=== PATIENT | male | born 1980 | race Caucasian/White ===

== ENCOUNTER 2019-01-06 07:47 | Emergency (ER) | payer BC, OTHER ==
[2019-01-06 07:56] VITALS: RESP 18
--- NOTE | 2019-01-06 08:47 | ED ---
General Adult HPI - General Chief complaint: Abdominal Pain Stated complaint: ABDOMINAL BULGE Time Seen by Provider: 01/06/19 08:06 Source: patient, RN notes reviewed Mode of arrival: ambulatory Limitations: no limitations - History of Present Illness Initial comments: 38-year-old male with a history of Crohn's and colitis presents to the emergency department for a chief complaint of bulge in right groin 5 months. Patient states he began noticing this intermittently. He states he sometimes has a sharp stabbing pain. Patient states his finally made him come in to be evaluated. Patient denies any difficulty with bowel movements. Patient denies any significant abdominal pain. Patient denies any testicular pain. Patient has no other complaints at this time including shortness of breath, chest pain, abdominal pain, nausea or vomiting, headache, or visual changes. - Related Data Home Medications Medication Instructions Recorded Confirmed Ibuprofen [Motrin Ib] 800 mg PO Q6H PRN 01/06/19 01/06/19 Allergies Allergy/AdvReac Type Severity Reaction Status Date / Time tramadol Allergy Swelling Verified 01/06/19 08:15 codeine AdvReac Swelling Verified 01/06/19 08:15 Review of Systems ROS Statement: Those systems with pertinent positive or pertinent negative responses have been documented in the HPI. ROS Other: All systems not noted in ROS Statement are negative. Past Medical History Past Medical History: No Reported History Additional Past Medical History / Comment(s): C/O of R knee pain. History of Any Multi-Drug Resistant Organisms: None Reported Past Surgical History: Hernia Repair, Orthopedic Surgery Additional Past Surgical History / Comment(s): Septoplasty Past Anesthesia/Blood Transfusion Reactions: No Reported Reaction Past Psychological History: No Psychological Hx Reported Smoking Status: Current every day smoker Past Alcohol Use History: Rare Past Drug Use History: Marijuana - Past Family History Mother Family Medical History: No Reported History General Exam Limitations: no limitations General appearance: alert, in no apparent distress Head exam: Present: atraumatic, normocephalic, normal inspection Eye exam: Present: normal appearance, PERRL, EOMI. Absent: scleral icterus, conjunctival injection, periorbital swelling ENT exam: Present: normal exam, mucous membranes moist Neck exam: Present: normal inspection, full ROM. Absent: tenderness, meningismus, lymphadenopathy Respiratory exam: Present: normal lung sounds bilaterally. Absent: respiratory distress, wheezes, rales, rhonchi, stridor Cardiovascular Exam: Present: regular rate, normal rhythm, normal heart sounds. Absent: systolic murmur, diastolic murmur, rubs, gallop, clicks GI/Abdominal exam: Present: soft, normal bowel sounds, hernia (patient has small non-erythematous, non-tender buldge to right groin). Absent: distended, tenderness, guarding, rebound, rigid Neurological exam: Present: alert, oriented X3, CN II-XII intact Psychiatric exam: Present: normal affect, normal mood Course Vital Signs 01/06/19 07:54 Temperature 97.8 F Pulse Rate 78 Respiratory 18 Rate Blood Pressure 134/89 O2 Sat by Pulse 99 Oximetry Medical Decision Making - Medical Decision Making 38-year-old male with a history of crohns/colitis presents for a chief complaint of bulge in right groin 5 months. This is non-erythematous. Nontender. CBC CMP unremarkable. Urine does not show any evidence of infection. CT shows a moderate-sized fat containing right inguinal hernia. No evidence of strength in her incarceration at this time. Patient will follow up with surgery. He will return here if he has any worsening pain or other symptoms. - Lab Data Result diagrams: 01/06/19 08:15 01/06/19 08:15 Lab Results 01/06/19 01/06/19 01/06/19 Range/Units 08:15 08:15 08:15 WBC 8.8 (3.8-10.6) k/uL RBC 5.31 (4.30-5.90) m/uL Hgb 16.7 (13.0-17.5) gm/dL Hct 50.8 (39.0-53.0) % MCV 95.6 (80.0-100.0) fL MCH 31.5 (25.0-35.0) pg MCHC 32.9 (31.0-37.0) g/dL RDW 13.0 (11.5-15.5) % Plt Count 242 (150-450) k/uL Neutrophils % 57 % Lymphocytes % 31 % Monocytes % 5 % Eosinophils % 4 % Basophils % 1 % Neutrophils # 5.0 (1.3-7.7) k/uL Lymphocytes # 2.7 (1.0-4.8) k/uL Monocytes # 0.4 (0-1.0) k/uL Eosinophils # 0.4 (0-0.7) k/uL Basophils # 0.1 (0-0.2) k/uL Sodium 142 (137-145) mmol/L Potassium 4.9 (3.5-5.1) mmol/L Chloride 107 (98-107) mmol/L Carbon Dioxide 28 (22-30) mmol/L Anion Gap 7 mmol/L BUN 12 (9-20) mg/dL Creatinine 0.99 (0.66-1.25) mg/dL Est GFR (CKD-EPI)AfAm >90 (>60 ml/min/1.73 sqM) Est GFR (CKD-EPI)NonAf >90 (>60 ml/min/1.73 sqM) Glucose 101 H (74-99) mg/dL Calcium 10.2 (8.4-10.2) mg/dL Total Bilirubin 0.7 (0.2-1.3) mg/dL AST 42 (17-59) U/L ALT 61 (21-72) U/L Alkaline Phosphatase 44 (38-126) U/L Total Protein 7.8 (6.3-8.2) g/dL Albumin 4.8 (3.5-5.0) g/dL Amylase 57 (30-110) U/L Lipase 87 (23-300) U/L Urine Color Yellow Urine Appearance Clear (Clear) Urine pH 5.5 (5.0-8.0) Ur Specific [place] 1.018 (1.001-1.035) Urine Protein Trace H (Negative) Urine Glucose (UA) Negative (Negative) Urine Ketones Negative (Negative) Urine Blood Negative (Negative) Urine Nitrite Negative (Negative) Urine Bilirubin Negative (Negative) Urine Urobilinogen <2.0 (<2.0) mg/dL Ur Leukocyte Esterase Negative (Negative) Disposition Clinical Impression: Right inguinal hernia Disposition: HOME SELF-CARE Condition: Good Additional Instructions: Please follow up with Gen. surgery in 1-2 days. If you have worsening pain or any other worsening symptoms or return here to the emergency department. Is patient prescribed a controlled substance at d/c from ED?: No Referrals: Matteo Magallon MD [Primary Care Provider] - 1-2 days Eugenie Lovell DO [Doctor of Osteopathic Medicine] - 1-2 days Time of Disposition: 09:44
[2019-01-06] MEDS: SODIUM CHLORIDE 0.9% 1,000 ML IV STA (08:50)
[2019-01-06] MEDS: KETOROLAC 30 MG/ML 1 ML VIAL IVP STA (08:59)
[2019-01-06 09:11] LABS: Basophils # (A) 0.1 k/uL (0-0.2); Basophils % (A) 1 %; Eosinophils # (A) 0.4 k/uL (0-0.7); Eosinophils % (A) 4 %; HCT 50.8 % (39.0-53.0); HGB 16.7 gm/dL (13.0-17.5); Lymphocytes # (A) 2.7 k/uL (1.0-4.8); Lymphocytes % (A) 31 %; MCH 31.5 pg (25.0-35.0); MCHC 32.9 g/dL (31.0-37.0); MCV 95.6 fL (80.0-100.0); Mean Platelet Volume 8.7; Monocytes # (A) 0.4 k/uL (0-1.0); Monocytes % (A) 5 %; Neutrophils % (A) 57 %; Platelet Count 242 k/uL (150-450); RBC 5.31 m/uL (4.30-5.90); WBC 8.8 k/uL (3.8-10.6)
[2019-01-06 09:14] LABS: Appearance,Urine Clear (Clear); Bilirubin,Urine Negative (Negative); Blood,Urine Negative (Negative); Color,Urine Yellow; Glucose,Urine (UA) Negative (Negative); Ketones,Urine Negative (Negative); Leukocyte Esterase,Urine Negative (Negative); Nitrite,Urine Negative (Negative); PH, Urine 5.5 (5.0-8.0); Protein,Urine Trace (Negative); Specific Gravity,Urine 1.018 (1.001-1.035); Urobilinogen,Urine <2.0 mg/dL (<2.0)
[2019-01-06 09:26] LABS: ALT 61 U/L (21-72); AST 42 U/L (17-59); Albumin 4.8 g/dL (3.5-5.0); Alkaline Phosphatase 44 U/L (38-126); Amylase 57 U/L (30-110); Anion Gap 7 mmol/L; Blood Urea Nitrogen 12 mg/dL (9-20); Calcium 10.2 mg/dL (8.4-10.2); Carbon Dioxide 28 mmol/L (22-30); Chloride 107 mmol/L (98-107); Glucose 101 mg/dL (74-99); Lipase 87 U/L (23-300); Potassium 4.9 mmol/L (3.5-5.1); Sodium 142 mmol/L (137-145); Total Bilirubin 0.7 mg/dL (0.2-1.3); Total Protein 7.8 g/dL (6.3-8.2)
--- NOTE | 2019-01-06 09:26 | CT ---
EXAMINATION TYPE: CT abdomen pelvis w con DATE OF EXAM: 01/06/2019 COMPARISON: None HISTORY: Abdominal bulge, right inguinal balls per technologist. CT DLP: 1105.3 mGycm, Automated Exposure Control for Dose Reduction was Utilized. CONTRAST: CT scan of the abdomen and pelvis is performed without oral but with IV Contrast, patient injected wi th 100 mL of Isovue 300. FINDINGS: LUNG BASES: No significant abnormality is appreciated. LIVER/GB: Liver is markedly hypodense relative to spleen consistent with diffuse fatty infiltration. PANCREAS: No significant abnormality is seen. SPLEEN: No significant abnormality is seen. ADRENALS: No significant abnormality is seen. KIDNEYS: No significant abnormality is seen. BOWEL: Evaluation of bowel is suboptimal secondary to lack of enteric contrast. Stomach is poorly dis tended and thus suboptimally evaluated. There is no suspicious small or large bowel dilatation. Korina l-appearing appendix is seen extending inferiorly and medially from the cecum. PROSTATE/SEMINAL VESICLES: No gross abnormality seen. LYMPH NODES: No greater than 1cm abdominal or pelvic lymph nodes are appreciated. There are symmetri c bilateral subcentimeter groin lymph nodes OSSEOUS STRUCTURES: No significant abnormality is seen. OTHER: There is moderate sized fat-containing right inguinal hernia. IMPRESSION: Moderate sized fat-containing right inguinal hernia.
[2019-01-06 10:08] VITALS: BP 124/72; PULSE 72; TEMP 98.3
== END 2019-01-06 10:03 | disposition home or self-care (01) ==
LOC: EC 07:47
DX: K40.90 Unilateral inguinal hernia, without obstruction or gangrene, not specified as recurrent (principal); F17.200 Nicotine dependence, unspecified, uncomplicated; Z88.5 Allergy status to narcotic agent
CPT/HCPCS: 36415; 80053; 82150; 83690; 85025; 81003; 74177; 99284; 96374; 96361; J1885; Q9967

== ENCOUNTER 2019-08-25 15:56 | Emergency (ER) | payer OTHER ==
[2019-08-25 16:08] VITALS: TEMP 97.9
[2019-08-25] MEDS ORDERED: KETOROLAC 30 MG/ML 1 ML VIAL IM STA (16:52)
--- NOTE | 2019-08-25 16:59 | XR ---
EXAMINATION TYPE: XR chest 2V DATE OF EXAM: 08/25/2019 COMPARISON: 08/15/2014 HISTORY: Shoulder pain TECHNIQUE: Frontal and lateral views of the chest are obtained. FINDINGS: Heart and mediastinum are normal. Lungs are clear. Diaphragm is normal. Bony thorax appear s normal. IMPRESSION: Normal chest. No change.
--- NOTE | 2019-08-25 17:00 | XR ---
EXAMINATION TYPE: XR shoulder complete LT DATE OF EXAM: 08/25/2019 COMPARISON: None HISTORY: Shoulder pain TECHNIQUE: 3 views FINDINGS: I see no fracture nor dislocation. Joint spaces are normal. There are no pathologic calcifi cations. IMPRESSION: Negative left shoulder exam.
--- NOTE | 2019-08-25 17:17 | ED ---
General Adult HPI - General Chief complaint: Extremity Injury, Upper Stated complaint: Shoulder injury Time Seen by Provider: 08/25/19 16:24 Source: patient, RN notes reviewed Mode of arrival: ambulatory Limitations: no limitations - History of Present Illness Initial comments: 38-year-old male presents for left shoulder and left upper back pain. Patient states he was climbing down from a ladder when he suddenly felt pain when his left arm was above his head. States that it hurts in his shoulder blade to move his left arm. He is able to do so. States that this happened a couple days ago. Denies any other injuries. Denies neck pain.Patient has no other complaints at this time including shortness of breath, chest pain, abdominal pain, nausea or vomiting, headache, or visual changes. - Related Data Home Medications Medication Instructions Recorded Confirmed Ibuprofen [Motrin Ib] 800 mg PO Q6H PRN 01/06/19 01/06/19 Previous Rx's Medication Instructions Recorded Ibuprofen [Motrin] 600 mg PO Q8HR PRN #20 tab 08/25/19 Lidocaine 5% Patch [Lidoderm 5% 1 patch TOPICAL DAILY PRN 5 Days 08/25/19 Patch] #5 patch Allergies Allergy/AdvReac Type Severity Reaction Status Date / Time tramadol Allergy Swelling Verified 08/25/19 16:08 codeine AdvReac Swelling Verified 08/25/19 16:08 Review of Systems ROS Statement: Those systems with pertinent positive or pertinent negative responses have been documented in the HPI. ROS Other: All systems not noted in ROS Statement are negative. Past Medical History Past Medical History: No Reported History Additional Past Medical History / Comment(s): C/O of R knee pain. History of Any Multi-Drug Resistant Organisms: None Reported Past Surgical History: Hernia Repair, Orthopedic Surgery Additional Past Surgical History / Comment(s): Septoplasty Past Anesthesia/Blood Transfusion Reactions: No Reported Reaction Past Psychological History: No Psychological Hx Reported Smoking Status: Current every day smoker Past Alcohol Use History: Rare Past Drug Use History: Marijuana - Past Family History Mother Family Medical History: No Reported History General Exam Limitations: no limitations General appearance: alert, in no apparent distress Head exam: Present: atraumatic, normocephalic, normal inspection Eye exam: Present: normal appearance, PERRL, EOMI. Absent: scleral icterus, conjunctival injection, periorbital swelling ENT exam: Present: normal exam, mucous membranes moist Neck exam: Present: normal inspection, full ROM. Absent: tenderness, meningismus, lymphadenopathy Respiratory exam: Present: normal lung sounds bilaterally. Absent: respiratory distress, wheezes, rales, rhonchi, stridor, chest wall tenderness (No chest wall tenderness) Cardiovascular Exam: Present: regular rate, normal rhythm, normal heart sounds. Absent: systolic murmur, diastolic murmur, rubs, gallop, clicks GI/Abdominal exam: Present: soft, normal bowel sounds. Absent: distended, tenderness, guarding, rebound, rigid Extremities exam: Present: normal capillary refill (Capillary refill less than, radial pulse 2+ and left upper extremity.), other (Sensation intact in the left upper extremity.). Absent: full ROM (Pt has 90 abduction and flexion of the left shoulder. Full range of motion of the left hand wrist and elbow.), tenderness (No tenderness noted of the left shoulder.), joint swelling (No ecchymosis or edema present in the left shoulder or left upper extremity. No ecchymosis in the back.) Back exam: Present: tenderness (Tenderness noted just medial to the left shoulder blade, muscle spasm noted.) Neurological exam: Present: alert Psychiatric exam: Present: normal affect, normal mood Course Vital Signs 08/25/19 16:06 Temperature 97.9 F Pulse Rate 84 Respiratory 20 Rate Blood Pressure 136/77 O2 Sat by Pulse 97 Oximetry Medical Decision Making - Medical Decision Making 38-year-old male presents for left shoulder and upper left back pain after climbing down a ladder. Pain is reproducible to palpation just medial to his left shoulder blade. He has pain in the shoulder when moving the shoulder and has about 90 flexion and abduction. Neurovascular status intact in the left upper cavity. Chest x-ray was obtained which showed normal chest no change. X- ray of the left shoulder is negative. Vitals are stable. Patient was given Toradol and did have some improvement of symptoms. At this time patient will follow up with orthopedics and primary care. He will take Motrin and Tylenol for pain. Recommended range of motion exercises for the left shoulder to prevent frozen shoulder. Recommended he return if he has any worsening symptoms. Disposition Clinical Impression: Shoulder pain, left Disposition: HOME SELF-CARE Condition: Good Instructions (If sedation given, give patient instructions): Shoulder Pain (ED) Additional Instructions: Please take Motrin and Tylenol for pain. Please follow-up with orthopedics and primary care in 1-2 days. Continue to do range of motion exercises with the left shoulder. Return here to the emergency department if you've any worsening symptoms. Prescriptions: Lidocaine 5% Patch [Lidoderm 5% Patch] 1 patch TOPICAL DAILY PRN 5 Days #5 patch PRN Reason: Pain Ibuprofen [Motrin] 600 mg PO Q8HR PRN #20 tab PRN Reason: Pain Is patient prescribed a controlled substance at d/c from ED?: No Referrals: Matteo Magallon MD [Primary Care Provider] - 1-2 days David Harris DO [Doctor of Osteopathic Medicine] - 1-2 days Time of Disposition: 17:16
[2019-08-25 17:22] VITALS: BP 130/74; PULSE 80; RESP 16
== END 2019-08-25 17:21 | disposition home or self-care (01) ==
LOC: EC 15:56
DX: M25.512 Pain in left shoulder (principal); M54.6 Pain in thoracic spine; S49.92XA Unspecified injury of left shoulder and upper arm, initial encounter; F17.200 Nicotine dependence, unspecified, uncomplicated; Z88.6 Allergy status to analgesic agent; Z88.5 Allergy status to narcotic agent; X58.XXXA Exposure to other specified factors, initial encounter; Y93.39 Activity, other involving climbing, rappelling and jumping off
CPT/HCPCS: 99283; 73030; 71046; 96372; J1885

== ENCOUNTER 2020-09-30 16:39 | Emergency (ER) | payer OTHER ==
[2020-09-30 16:54] VITALS: BP 143/81; PULSE 83; RESP 20; TEMP 99.1
--- NOTE | 2020-09-30 17:02 | ED ---
General Adult HPI - General Chief complaint: Recheck/Abnormal Lab/Rx Stated complaint: wanting COVID test Time Seen by Provider: 09/30/20 16:56 Source: patient, RN notes reviewed Mode of arrival: ambulatory Limitations: no limitations - History of Present Illness Initial comments: 39-year-old male presents emergency Department requesting coronavirus testing. Patient states that he had a coworker that tested positive. He states that he was exposed possibly on . He is asymptomatic no fevers chills cough congestion headache dizziness bodyaches abdominal pain no other complaints. - Related Data Home Medications Medication Instructions Recorded Confirmed Ibuprofen [Motrin Ib] 800 mg PO Q6H PRN 01/06/19 01/06/19 Previous Rx's Medication Instructions Recorded Ibuprofen [Motrin] 600 mg PO Q8HR PRN #20 tab 08/25/19 Lidocaine 5% Patch [Lidoderm 5% 1 patch TOPICAL DAILY PRN 5 Days 08/25/19 Patch] #5 patch Allergies Allergy/AdvReac Type Severity Reaction Status Date / Time tramadol Allergy Swelling Verified 09/30/20 16:54 codeine AdvReac Swelling Verified 09/30/20 16:54 Review of Systems ROS Statement: Those systems with pertinent positive or pertinent negative responses have been documented in the HPI. ROS Other: All systems not noted in ROS Statement are negative. Past Medical History Past Medical History: No Reported History Additional Past Medical History / Comment(s): C/O of R knee pain. History of Any Multi-Drug Resistant Organisms: None Reported Past Surgical History: Hernia Repair, Orthopedic Surgery Additional Past Surgical History / Comment(s): Septoplasty Past Anesthesia/Blood Transfusion Reactions: No Reported Reaction Past Psychological History: No Psychological Hx Reported Smoking Status: Current every day smoker Past Alcohol Use History: Rare Past Drug Use History: Marijuana - Past Family History Mother Family Medical History: No Reported History General Exam Limitations: no limitations General appearance: alert, in no apparent distress Neck exam: Present: normal inspection. Absent: tenderness, meningismus, lymphadenopathy Respiratory exam: Present: normal lung sounds bilaterally. Absent: respiratory distress, wheezes, rales, rhonchi, stridor Cardiovascular Exam: Present: regular rate, normal rhythm, normal heart sounds. Absent: systolic murmur, diastolic murmur, rubs, gallop, clicks Course Vital Signs 09/30/20 16:51 Temperature 99.1 F Pulse Rate 83 Respiratory 20 Rate Blood Pressure 143/81 O2 Sat by Pulse 99 Oximetry Medical Decision Making - Medical Decision Making Coronavirus testing was ordered. Patient will follow-up on results. Disposition Clinical Impression: Exposure to COVID-19 virus Disposition: HOME SELF-CARE Condition: Stable Additional Instructions: Please return to the Emergency Department if symptoms worsen or any other concerns. Is patient prescribed a controlled substance at d/c from ED?: No Referrals: Matteo Magallon MD [Primary Care Provider] - 1-2 days Time of Disposition: 17:02
== END 2020-09-30 17:23 | disposition home or self-care (01) ==
LOC: EC 16:39
DX: Z20.828 Contact with and (suspected) exposure to other viral communicable diseases (principal); F17.200 Nicotine dependence, unspecified, uncomplicated; Z88.5 Allergy status to narcotic agent
CPT/HCPCS: 99283; U0003

== ENCOUNTER → 2021-01-21 | Outpatient (CLI) | payer OTHER ==
--- NOTE | 2021-01-21 11:12 | XR ---
EXAMINATION TYPE: XR chest 2V DATE OF EXAM: 01/21/2021 COMPARISON: Chest x-ray August 25, 2019 HISTORY: Chest pain. TECHNIQUE: Frontal and lateral views of the chest are obtained. FINDINGS: There is no focal air space opacity, pleural effusion, or pneumothorax seen. The cardiac silhouette size is stable and within normal limits. The osseous structures are intact. IMPRESSION: No acute process. No significant change from prior.
--- NOTE | 2021-01-21 15:47 | CT ---
EXAMINATION TYPE: CT abdomen pelvis w con DATE OF EXAM: 01/21/2021 COMPARISON: CT 01/06/2019 HISTORY: inguinal hernia CT DLP: 1690.2 mGycm Automated exposure control for dose reduction was used. TECHNIQUE: Helical acquisition of images from the lung bases through the pelvis have been completed. CONTRAST: Performed with Oral Contrast and with IV Contrast, patient injected with 100 mL of Isovue 300. FINDINGS: Right inguinal hernia is confirmed and contains fat which is larger than the smaller left i nguinal hernia containing fat LUNG BASES: No significant abnormality is appreciated. AORTA: No significant abnormality is appreciated. LIVER/GB: Liver shows low attenuation likely due to hepatic steatosis, the liver is enlarged, gallbla dder is unremarkable PANCREAS: No significant abnormality is seen. SPLEEN: No significant abnormality is seen. ADRENALS: No significant abnormality is seen. KIDNEYS: No significant abnormality is seen. REPRODUCTIVE ORGANS: No significant abnormality is seen BOWEL: No significant abnormality is seen. FREE AIR: No Free Air visible. ASCITES: None visible. PELVIC ADENOPATHY: None visualized. RETROPERITONEAL ADENOPATHY: No Retroperitoneal Adenopathy visible. URINARY BLADDER: No significant abnormality is seen. OSSEOUS STRUCTURES: No significant abnormality is seen. IMPRESSION: INGUINAL HERNIAS RIGHT GREATER THAN LEFT
== END | disposition home or self-care (01) ==
LOC: RADCTMAIN 10:32
PROVIDERS: ATTEND Family Medicine
DX: K40.20 Bilateral inguinal hernia, without obstruction or gangrene, not specified as recurrent (principal); R07.89 Other chest pain
CPT/HCPCS: 71046; 74177; Q9967

== ENCOUNTER → 2021-02-07 | Outpatient (CLI) | payer OTHER ==
[2021-02-07 19:25] LABS: Basophils # (A) 0.09 X 10*3/uL (0.00-0.10); Eosinophils % (A) 4.2 %; HCT 44.7 % (39.6-50.0); HGB 14.7 g/dL (13.0-17.0); Lymphocytes # (A) 3.59 X 10*3/uL (0.90-5.00); Lymphocytes % (A) 38.1 %; MCH 31.7 pg (27.0-32.0); MCHC 32.9 g/dL (32.0-37.0); MCV 96.5 fL (80.0-97.0); Monocytes # (A) 0.63 X 10*3/uL (0.20-1.00); Monocytes % (A) 6.7 %; Neutrophils # (A) 4.67 X 10*3/uL (1.80-7.70); Neutrophils % (A) 49.6 %; Platelet Count 263 X 10*3/uL (140-440); RBC 4.63 X 10*6/uL (4.40-5.60); RDW 12.5 % (11.5-14.5); WBC 9.42 X 10*3/uL (4.50-10.00)
== END | disposition home or self-care (01) ==
LOC: LABWHC1 13:55
PROVIDERS: ATTEND Surgery
DX: K40.20 Bilateral inguinal hernia, without obstruction or gangrene, not specified as recurrent (principal)
CPT/HCPCS: 36415; 85025

== ENCOUNTER 2021-02-12 07:38 | Day surgery (SDC) | payer OTHER ==
[2021-02-11 10:38] VITALS: BMI 33.2
[~2021-02-12 07:38] MED LIST: ACETAMINOPHEN TAB 500 MG TAB PO PRN; DEXAMETHASONE SOD PHOSPHATE 4 MG/ML 1 ML VIAL IV PRN; HEPARIN SODIUM,PORCINE 5,000 UNIT/ML 1 ML VIAL SQ PRN; HYDROmorphone 0.5 MG/0.5 ML SYRINGE IVP PRN; KETOROLAC 15 MG/ML 1 ML VIAL IVP SCH; LIDOCAINE 1% (10MG/ML) FOR IV START INTRADERMA PRN; METOCLOPRAMIDE 5 MG/ML 2 ML VIAL IVP PRN; ONDANSETRON 4 MG/2 ML VIAL IVP PRN; SCOPOLAMINE 1.5MG/72HR PATCH TRANSDERM ONE
[2021-02-12] MEDS: LACTATED RINGERS 1,000 ML IV SCH ×2 (07:52→08:15)
[2021-02-12] MEDS ORDERED: MIDAZOLAM 2 MG/2 ML VIAL IVP ONE (08:45)
--- NOTE | 2021-02-12 09:16 | P.GSHP ---
History of Present Illness H&P Date: 02/12/21 Chief Complaint: Bilateral inguinal hernia This a 40-year-old male who presents today for laparoscopic robotic-assisted repair of bilateral hernias. Patient has had complaints of bilateral pain in the groin. He seen Azael found have reducible bilateral hernias. Past Medical History Past Medical History: COPD, Fibromyalgia, Hyperlipidemia Additional Past Medical History / Comment(s): inguinal hernia saritha History of Any Multi-Drug Resistant Organisms: None Reported Past Surgical History: Hernia Repair, Orthopedic Surgery Additional Past Surgical History / Comment(s): Septoplasty, rt knee repair ACL and meniscus Past Anesthesia/Blood Transfusion Reactions: No Reported Reaction Smoking Status: Current every day smoker - Past Family History Mother Family Medical History: Cancer Father Family Medical History: Cancer Additional Family Medical History / Comment(s): lung cancer Medications and Allergies Home Medications Medication Instructions Recorded Confirmed Type Albuterol Inhaler [Ventolin Hfa 1 puff INHALATION DAILY PRN 02/11/21 02/12/21 History Inhaler] Atorvastatin [Lipitor] 20 mg PO DAILY 02/11/21 02/12/21 History Ergocalciferol [Vitamin D2 (1250 1,250 mcg PO SALINAS 02/11/21 02/12/21 History Mcg = [id number] Iu)] Allergies Allergy/AdvReac Type Severity Reaction Status Date / Time tramadol Allergy Swelling Verified 02/12/21 08:03 codeine AdvReac Swelling Verified 02/12/21 08:03 Surgical - Exam Vital Signs Temp Pulse Resp BP Pulse Ox 97.0 F L 83 16 128/65 98 02/12/21 08:27 02/12/21 08:27 02/12/21 08:27 02/12/21 08:27 02/12/21 08:27 - General well developed, well nourished, no distress - Eyes PERRL - ENT normal pinna - Neck no masses - Respiratory normal expansion - Cardiovascular Rhythm: regular - Abdomen Abdomen: soft, non tender Assessment and Plan Assessment: The lateral hernia. We'll perform laparoscopic robotic-assisted repair.
[2021-02-12] MEDS ORDERED: LIDOCAINE 1% INJ 10MG/ML (20 ML MDV) ONE (09:26)
[2021-02-12] MEDS ORDERED: KETAMINE 10 MG/ML 20 ML VIAL ONE (09:26)
[2021-02-12] MEDS ORDERED: SUCCINYLCHOLINE CHLORIDE 100 MG/5 ML SYR IV ONE (09:26)
[2021-02-12] MEDS ORDERED: ROPIVACAINE 5 MG/ML 30 ML VIAL ONE (09:26)
[2021-02-12] MEDS ORDERED: fentaNYL (PF) 50 MCG/ML 2 ML AMP ONE (09:26)
[2021-02-12] MEDS ORDERED: NEOSTIGMINE 1 MG/ML 10 ML VIAL ONE (09:26)
[2021-02-12] MEDS ORDERED: SODIUM CHLORIDE 0.9% (PF) 10 ML VIAL ONE (09:26)
[2021-02-12] MEDS ORDERED: MIDAZOLAM 2 MG/2 ML VIAL ONE (09:26)
[2021-02-12] MEDS ORDERED: ROCURONIUM 10 MG/ML (5 ML VIAL) IV ONE (09:26)
[2021-02-12] MEDS ORDERED: GLYCOPYRROLATE 0.2 MG/ML 2 ML VIAL ONE (09:26)
[2021-02-12] MEDS ORDERED: PROPOFOL 10 MG/ML 20 ML VIAL IV ONE (09:26)
[2021-02-12] MEDS ORDERED: BUPIVACAIN-EPI 0.5%-1:200,000 30 ML VIAL SQ ONE (09:54)
--- NOTE | 2021-02-12 10:42 | P.OP ---
Date of Procedure: 02/12/21 Preoperative Diagnosis: Bilateral inguinal hernia Postoperative Diagnosis: Bilateral inguinal hernia Procedure(s) Performed: Laparoscopic robotic system repair of bilateral renal hernia Anesthesia: BENSON Surgeon: Francis Mariano Estimated Blood Loss (ml): 5 Pathology: none sent Condition: stable Disposition: PACU Description of Procedure: MThe patient's placed on the operating table in the supine position. The patient received general anesthesia. The patient's abdomen was prepped and draped in usual sterile fashion. The skin was anesthetized 1% local Xylocaine at the incision sites. Using an 11 blade a skin incision was made at the umbilicus. The fascia was grasped with a [place] and then the peritoneal cavity was entered with the Veress needle. Position of the Veress needle was confirmed with a positive drop test. After adequate insufflation a 5 mm trocar was placed into the peritoneal cavity. The Laparoscope was placed the peritoneal cavity. And a robotic 8 mm trocar was placed in the right lateral position and then another 8 mm robotic trochars placed in the left lateral position. The original 5 mm trocar was exchanged for a 12 mm trocar. The patient was placed in reverse Trendelenburg and then the patient was docked to the robot. Next the peritoneum over top of the right inguinal hernia was incised and then using blunt and sharp dissection and electrocautery the hernia sac was dissected free from the floor of the inguinal canal. The hernia sac was completely reduced into the peritoneal cavity. And then using the Pro fleet dispatch manager mesh the hernia was repaired. The peritoneum was then sutured with 20V lock suture. Next the peritoneum over top of the left inguinal hernia was incised and then using blunt and sharp dissection and electrocautery the hernia sac was dissected free from the floor of the inguinal canal. The hernia sac was completely reduced into the peritoneal cavity. And then using the Pro fleet dispatch manager mesh the hernia was repaired. The peritoneum was then sutured with 20V lock suture. The patient was then undocked the robot. The needle was withdrawn from the peritoneal cavity. The umbilical trocar site was closed with 0 Ethibond suture. The skin was closed interrupted 3-0 Monocryl suture. Dermabond dressing was applied. Patient was sent to recovery in stable condition.
[2021-02-12 10:56] VITALS: TEMP 97.2
[2021-02-12] MEDS: HYDROmorphone 1 MG/ML 1 ML SYRINGE IVP ONE ×2 (11:10→11:17)
[2021-02-12 12:24] VITALS: RESP 18
[2021-02-12 12:28] VITALS: BP 142/84; PULSE 85
--- NOTE | 2021-02-13 08:43 | P.ANPRN ---
Procedure Note - Anesthesia - Nerve Block Performed Bilateral Erector Spinae Single Time Out Performed: Yes Date of Procedure: 02/12/21 Procedure Start Time: 08:44 Procedure Stop Time: 08:53 Location of Patient: PreOp Indication: Acute Post-Operative Pain, Requested by Surgeon Sedation Type: Sedate with meaningful contact maintained Preparation: Sterile Prep Position: Prone Needle Types: Pajunk Needle Gauge: 21 Ultrasound used to visualize needle placement: Yes Ultrasound used to observe medication spread: Yes Blood Aspirated: No Pain Paresthesia on Injection Noted: No Resistance on Injection: Normal Image Stored and Saved: Yes Events: Uneventful and Well Tolerated (ropi .25% 30 cc bilaterally at t12)
== END 2021-02-12 13:06 | disposition home or self-care (01) ==
LOC: OR 07:38
PROVIDERS: ATTEND Surgery
DX: K40.20 Bilateral inguinal hernia, without obstruction or gangrene, not specified as recurrent (principal); J44.9 Chronic obstructive pulmonary disease, unspecified; M79.7 Fibromyalgia; E78.5 Hyperlipidemia, unspecified; Z98.890 Other specified postprocedural states; F17.200 Nicotine dependence, unspecified, uncomplicated; Z80.1 Family history of malignant neoplasm of trachea, bronchus and lung; Z79.899 Other long term (current) drug therapy; Z88.5 Allergy status to narcotic agent
CPT/HCPCS: 49650; 64999; 76942; C1781 ×2; J2250; J1644; J1100; J2710; J0690; J2405; J2001; J3010; J1170 ×2; J2795; J1885; J0330; J2704

== ENCOUNTER → 2021-02-25 | Outpatient (CLI) | payer OTHER ==
--- NOTE | 2021-02-25 10:47 | ECHOF ---
Referral Reason:R07.89 MEASUREMENTS -------- HEIGHT: 175.3 cm WEIGHT: 102.1 kg BP: RVIDd: 2.6 cm (< 3.3) IVSd: 1.3 cm (0.6 - 1.1) LVIDd: 4.8 cm (3.9 - 5.3) LVPWd: 1.3 cm (0.6 - 1.1) IVSs: 2.1 cm LVIDs: 2.3 cm LVPWs: 1.9 cm LAESV Index (A-L): 15.11 ml/m Ao Diam: 2.9 cm (2.0 - 3.7) AV Cusp: 2.0 cm (1.5 - 2.6) LA Diam: 3.3 cm (2.7 - 3.8) MV EXCURSION: 22.486 mm (> 18.000) MV EF SLOPE: 174 mm/s (70 - 150) EPSS: 0.2 cm MV E Yonis: 0.90 m/s MV DecT: 157 ms MV A Yonis: 0.71 m/s MV E/A Ratio: 1.26 RAP: 5.00 mmHg RVSP: 10.53 mmHg FINDINGS -------- This was a technically good study. The left ventricular size is normal. There is mild concentric left ventricular hypertrophy. Overa ll left ventricular systolic function is normal with, an EF between 55 - 60 %. The diastolic fillin g pattern is normal for the age of the patient 10.72. The right ventricle is normal in size. The left atrial size is normal. Normal LA size by volume 22+/-6 ml/m2. The right atrial size is normal. Interatrial and interventricular septum intact. The aortic valve is trileaflet and appears structurally normal. The mitral valve is normal. There is trace mitral regurgitation. The tricuspid valve appears structurally normal. Trace tricuspid regurgitation present. Right lissette tricular systolic pressure is normal at < 35 mmHg. There is no pulmonic regurgitation present. The aortic root size is normal. Normal inferior vena cava with normal inspiratory collapse consistent with estimated right atrial pre ssure of 5 mmHg. There is no pericardial effusion. CONCLUSIONS -------- 1. The left ventricular size is normal. 2. There is mild concentric left ventricular hypertrophy. 3. Overall left ventricular systolic function is normal with, an EF between 55 - 60 %. 4. The diastolic filling pattern is normal for the age of the patient 10.72 5. There is trace mitral regurgitation. 6. Trace tricuspid regurgitation present. 7. There is no pericardial effusion. RHINESTONE SETTER: Maggie Marinelli RDCS
--- NOTE | 2021-02-25 13:57 | EST ---
EXERCISE STRESS AGE: 40 SEX: Male HT: 5'9" WT: 225 lbs. PROTOCOL: Viraj STAGE: 3 DURATION OF EXERCISE: 9 minutes HEART RATE REST: 85 BLOOD PRESSURE REST: 138/80 MAXIMUM HEART RATE ACHIEVED: 154 MAXIMUM BLOOD PRESSURE: 212/96 85% MPHR: 153 100% MPHR: 180 METS: 10.5 INDICATIONS: Chest pain CLINICAL INFORMATION: Baseline EKG revealed normal sinus rhythm without significant ST changes. Patient walked on standard Viraj protocol for 9 minutes achieved a maximal heart rate of 154 beats per minute which is 85% of predicted maximal. He developed shortness of breath and lightheadedness. He had hypertensive response to exercise with a resting blood pressure 138/80 and peak blood pressure 212/96, and then the pressure blood pressure came back to baseline. EKG did not reveal any ST-segment changes to indicate ischemia. There was no arrhythmia. No angina. By EKG criteria, this is a negative stress test with limited exercise capacity, hypertensive response to exercise and no evidence of ischemia. MMODL / IJN: [id number] /
== END | disposition home or self-care (01) ==
LOC: RADNMMAIN 09:44
PROVIDERS: ATTEND Family Medicine
DX: I08.1 Rheumatic disorders of both mitral and tricuspid valves (principal); R07.89 Other chest pain
CPT/HCPCS: 93017; 93306

== ENCOUNTER → 2021-03-12 | Outpatient (CLI) | payer OTHER ==
--- NOTE | 2021-03-12 14:27 | US ---
EXAMINATION TYPE: US liver DATE OF EXAM: 03/12/2021 COMPARISON: NONE CLINICAL HISTORY: Elevated liver enzymes R74.01. elevated liver enzymes EXAM MEASUREMENTS: Liver Length: 17.2 cm Gallbladder Wall: 0.2 cm CBD: 0.4 cm Right Kidney: 12.2 x 3.7 x 4.6 cm Pancreas: limited evaluation due to overlying bowel content Liver: attenuating, heterogeneous Gallbladder: no evidence of stones Evidence for sonographic Michelel's sign: no CBD: appears wnl Right Kidney: no evidence of hydronephrosis IMPRESSION: 1 hepatomegaly with mild fatty infiltration.
== END | disposition home or self-care (01) ==
LOC: RADUSWWP 07:30
PROVIDERS: ATTEND Family Medicine
DX: K76.0 Fatty (change of) liver, not elsewhere classified (principal); R16.0 Hepatomegaly, not elsewhere classified
CPT/HCPCS: 76705

== ENCOUNTER → 2021-09-03 | Outpatient (CLI) | payer OTHER | END | disposition home or self-care (01) | LOC: LABWHC1 15:45 | PROVIDERS: ATTEND Family Medicine | DX: Z20.822 Contact with and (suspected) exposure to COVID-19 (principal); B34.9 Viral infection, unspecified | CPT/HCPCS: 87502; U0003; C9803; U0005 ==

== ENCOUNTER 2022-03-04 17:09 | Emergency (ER) | payer OTHER ==
[2022-03-04 18:52] VITALS: BP 117/74; PULSE 81; RESP 18; TEMP 98.3
[2022-03-04 19:25] LABS: Basophils # (A) 0.1 k/uL (0-0.2); Basophils % (A) 1 %; Eosinophils # (A) 0.4 k/uL (0-0.7); Eosinophils % (A) 4 %; HCT 47.6 % (39.0-53.0); HGB 16.1 gm/dL (13.0-17.5); Lymphocytes # (A) 3.9 k/uL (1.0-4.8); Lymphocytes % (A) 33 %; MCH 33.2 pg (25.0-35.0); MCHC 33.9 g/dL (31.0-37.0); MCV 97.9 fL (80.0-100.0); Monocytes # (A) 0.5 k/uL (0-1.0); Monocytes % (A) 4 %; Neutrophils # (A) 6.6 k/uL (1.3-7.7); Neutrophils % (A) 57 %; Platelet Count 261 k/uL (150-450); RBC 4.86 m/uL (4.30-5.90); RDW 13.2 % (11.5-15.5); WBC 11.6 k/uL (3.8-10.6)
[2022-03-04 19:42] LABS: ALT 53 U/L (4-49); AST 43 U/L (17-59); African American GFR (CKD) >90 (>60 ml/min/1.73 sqM); Albumin 4.7 g/dL (3.5-5.0); Alkaline Phosphatase 58 U/L (38-126); Anion Gap 11 mmol/L; Blood Urea Nitrogen 10 mg/dL (9-20); Calcium 9.7 mg/dL (8.4-10.2); Carbon Dioxide 22 mmol/L (22-30); Chloride 108 mmol/L (98-107); Glucose 94 mg/dL (74-99); Non-African American GFR(CKD) >90 (>60 ml/min/1.73 sqM); Potassium 4.3 mmol/L (3.5-5.1); Sodium 141 mmol/L (137-145); Total Bilirubin 0.6 mg/dL (0.2-1.3); Total Protein 7.8 g/dL (6.3-8.2)
[2022-03-04 19:51] LABS: Appearance,Urine Clear (Clear); Bilirubin,Urine Negative (Negative); Blood,Urine Negative (Negative); Color,Urine Yellow; Glucose,Urine (UA) Negative (Negative); Ketones,Urine Negative (Negative); Leukocyte Esterase,Urine Negative (Negative); Nitrite,Urine Negative (Negative); Protein,Urine Trace (Negative); Specific Gravity,Urine 1.021 (1.001-1.035); Urobilinogen,Urine <2.0 mg/dL (<2.0)
== END 2022-03-04 21:30 | disposition left against medical advice (07) ==
LOC: EC 17:09
DX: Z53.21 Procedure and treatment not carried out due to patient leaving prior to being seen by health care provider (principal)
CPT/HCPCS: 36415; 80053; 81003; 85025; 99499

== ENCOUNTER → 2022-03-30 | Day surgery (SDC) | payer OTHER ==
[2022-03-27 08:28] VITALS: BMI 32.3
[~2022-03-30] MED LIST changes: -ACETAMINOPHEN TAB 500 MG TAB PO PRN; -DEXAMETHASONE SOD PHOSPHATE 4 MG/ML 1 ML VIAL IV PRN; -HEPARIN SODIUM,PORCINE 5,000 UNIT/ML 1 ML VIAL SQ PRN; -HYDROmorphone 0.5 MG/0.5 ML SYRINGE IVP PRN; -KETOROLAC 15 MG/ML 1 ML VIAL IVP SCH; +LACTATED RINGERS 1,000 ML IV SCH; +LIDOCAINE 2% INJ 20 MG/ML (2 ML VIAL) ONE; -METOCLOPRAMIDE 5 MG/ML 2 ML VIAL IVP PRN; -ONDANSETRON 4 MG/2 ML VIAL IVP PRN; +PROPOFOL 10 MG/ML 20 ML VIAL IV ONE; -SCOPOLAMINE 1.5MG/72HR PATCH TRANSDERM ONE
[2022-03-30 10:13] VITALS: RESP 16; TEMP 97
--- NOTE | 2022-03-30 11:47 | P.GSHP ---
History of Present Illness H&P Date: 03/30/22 Chief Complaint: GERD, GI bleed This a 41-year-old male who presents today for EGD and colonoscopy. Patient has had issues with GERD GI bleed. Past Medical History Past Medical History: No Reported History Additional Past Medical History / Comment(s): States having stomach issues. History of Any Multi-Drug Resistant Organisms: None Reported Past Surgical History: Hernia Repair Additional Past Surgical History / Comment(s): Septoplasty, R knee surgery. Past Anesthesia/Blood Transfusion Reactions: No Reported Reaction Smoking Status: Current every day smoker - Past Family History Mother Family Medical History: Cancer Additional Family Medical History / Comment(s): Breast Father Family Medical History: Cancer Additional Family Medical History / Comment(s): lung cancer Medications and Allergies Home Medications Medication Instructions Recorded Confirmed Type Acetaminophen Tab [Tylenol] 650 mg PO Q6H #30 tab 02/12/21 03/30/22 Rx Ibuprofen [Motrin] 600 mg PO Q6HR PRN #40 tab 02/12/21 03/30/22 Rx Multivitamins, Thera [Multivitamin 1 tab PO DAILY 03/30/22 03/30/22 History (formulary)] Allergies Allergy/AdvReac Type Severity Reaction Status Date / Time tramadol Allergy Swelling Verified 03/30/22 10:13 codeine AdvReac Swelling Verified 03/30/22 10:13 Surgical - Exam Vital Signs Temp Pulse Resp BP Pulse Ox 97.0 F L 86 16 133/83 95 03/30/22 10:12 03/30/22 10:12 03/30/22 10:12 03/30/22 10:12 03/30/22 10:12 - General well developed, well nourished, no distress - Eyes PERRL - ENT normal pinna - Neck no masses - Respiratory normal expansion - Cardiovascular Rhythm: regular - Abdomen Abdomen: soft, non tender Assessment and Plan Assessment: GERD, GI bleed. We'll perform colonoscopy.
--- NOTE | 2022-03-30 12:05 | P.OP ---
Date of Procedure: 03/30/22 Preoperative Diagnosis: GERD GI bleed Postoperative Diagnosis: Antral gastritis Minimal internal and external hemorrhoids Procedure(s) Performed: Colonoscopy Anesthesia: MAC Surgeon: Francis Mariano Pathology: other (Antrum) Condition: stable Disposition: PACU Description of Procedure: The patient's placed on the endoscopy table in the lateral position. He received IV sedation. The gastro-/oropharynx passed in the esophagus and stomach. Scope was placed through the pylorus. The first and second portion of duodenum appeared normal. Scope was then brought back the antrum was mildly inflamed. A biopsies was performed. The scope was retroflexed and the remainder of the stomach appeared normal. The GE junction was at 40 cm. The distal esophagus appeared normal. The proximal esophagus appeared normal. Scope was withdrawn for patient. Next digital rectal exam was performed. This revealed a few minimal internal and external hemorrhoids retroflexed clot scope was then placed patient anus passed throughout the entire colon. The ileocecal valve was visualized. The cecum, ascending and transverse colon appeared normal. In the descending and sigmoid colon there was a few scattered diverticula. Scope summer back the rectum this appeared normal. Scope withdrawn through the anus. And was in the internal hemorrhoid external hemorrhoids were noted. Scope withdrawn for patient. There is known to any GI bleed.. Patient has had some bleeding from hemorrhoids.
[2022-03-30 12:37] VITALS: BP 140/88; PULSE 67
== END ==
LOC: ORWHC2ENDO 09:41
PROVIDERS: ATTEND Surgery
DX: K29.70 Gastritis, unspecified, without bleeding (principal); K64.4 Residual hemorrhoidal skin tags; K64.8 Other hemorrhoids; K21.9 Gastro-esophageal reflux disease without esophagitis; F17.200 Nicotine dependence, unspecified, uncomplicated; Z79.1 Long term (current) use of non-steroidal anti-inflammatories (NSAID); Z80.1 Family history of malignant neoplasm of trachea, bronchus and lung; Z88.5 Allergy status to narcotic agent; Z88.8 Allergy status to other drugs, medicaments and biological substances
CPT/HCPCS: 45378; 43239; 88305; J2704; J2001

== ENCOUNTER → 2022-04-06 | Outpatient (CLI) | payer OTHER ==
--- NOTE | 2022-04-06 08:11 | US ---
EXAMINATION TYPE: US gallbladder DATE OF EXAM: 04/06/2022 COMPARISON: CT January 21 2021 CLINICAL HISTORY: R10.84 Generalized abd pain. Abdomen pain, bloating and N/V/D x couple months EXAM MEASUREMENTS: Liver Length: 19.9 cm Gallbladder Wall: 0.2 cm CBD: 0.4 cm Right Kidney: 11.4 x 4.4 x 5.1 cm Pancreas: visualized portions wnl, limited by overlying midline bowel gas Liver: enlarged, attenuating, heterogeneous with 3.2cm hypoechoic area adjacent to gallbladder Gallbladder: wnl Evidence for sonographic Michelle's sign: no CBD: wnl Right Kidney: wnl Visualized liver is heterogeneously hyperechoic. This limits evaluation for focal masses. Area adjace nt to gallbladder shows hypoechoic area presumed focal fatty sparing on a background diffuse fatty in filtrated liver. Findings correlate with prior CT. No right-sided hydronephrosis. IMPRESSION: No shadowing mobile gallstones or ultrasound evidence for acute cholecystitis.
== END | disposition home or self-care (01) ==
LOC: RADUSWWP 07:10
PROVIDERS: ATTEND Surgery
DX: R10.84 Generalized abdominal pain (principal); R11.2 Nausea with vomiting, unspecified; R14.0 Abdominal distension (gaseous)
CPT/HCPCS: 76705

== ENCOUNTER 2022-04-29 08:15 | Day surgery (SDC) | payer OTHER ==
[~2022-04-29 08:15] MED LIST changes: +ACETAMINOPHEN TAB 500 MG TAB PO PRN; +HEPARIN SODIUM,PORCINE/PF 5,000 UNIT/0.5 ML SYRINGE SQ PRN; -LACTATED RINGERS 1,000 ML IV SCH; -LIDOCAINE 1% (10MG/ML) FOR IV START INTRADERMA PRN; -LIDOCAINE 2% INJ 20 MG/ML (2 ML VIAL) ONE; -PROPOFOL 10 MG/ML 20 ML VIAL IV ONE
[2022-04-29] MEDS ORDERED: LACTATED RINGERS 1,000 ML IV SCH (08:49)
[2022-04-29] MEDS ORDERED: SCOPOLAMINE 1 MG/72 HR PATCH TRANSDERM ONE (08:49)
[2022-04-29] MEDS ORDERED: ONDANSETRON 4 MG/2 ML VIAL IVP ONE (08:49)
[2022-04-29] MEDS ORDERED: fentaNYL (PF) 50 MCG/ML 2 ML AMP IV PRN (08:49)
[2022-04-29] MEDS ORDERED: DEXAMETHASONE SOD PHOSPHATE 4 MG/ML 1 ML VIAL IV ONE (08:49)
--- NOTE | 2022-04-29 09:02 | P.GSHP ---
History of Present Illness H&P Date: 04/29/22 Chief Complaint: Right upper quadrant pain Is a 41-year-old male who's had complaints of upper quadrant pain. Patient presents today for laparoscopically cholecystectomy. Patient's found have evidence of biliary dysfunction on HIDA scan. Past Medical History Past Medical History: No Reported History Additional Past Medical History / Comment(s): ABD PAIN, RIGHT UPPER QUANDRANT History of Any Multi-Drug Resistant Organisms: None Reported Past Surgical History: Hernia Repair Additional Past Surgical History / Comment(s): Septoplasty, R knee surgery. Past Anesthesia/Blood Transfusion Reactions: No Reported Reaction Past Psychological History: No Psychological Hx Reported Smoking Status: Current every day smoker Past Alcohol Use History: None Reported Additional Past Alcohol Use History / Comment(s): Smokes 1/2 to 1 PPD cigarettes for 18 yrs. Past Drug Use History: Marijuana Additional Drug Use History / Comment(s): Occasionally - Past Family History Mother Family Medical History: Cancer Additional Family Medical History / Comment(s): Breast Father Family Medical History: Cancer Additional Family Medical History / Comment(s): lung cancer Medications and Allergies Home Medications Medication Instructions Recorded Confirmed Type Acetaminophen Tab [Tylenol] 650 mg PO Q6H #30 tab 02/12/21 04/29/22 Rx Ibuprofen [Motrin] 600 mg PO Q6HR PRN #40 tab 02/12/21 04/29/22 Rx Multivitamins, Thera [Multivitamin 1 tab PO DAILY 03/30/22 04/29/22 History (formulary)] Ondansetron Odt [Zofran ODT] 4 mg PO Q8H PRN 04/24/22 04/29/22 History Allergies Allergy/AdvReac Type Severity Reaction Status Date / Time tramadol Allergy Swelling Verified 04/29/22 08:49 codeine AdvReac Swelling Verified 04/29/22 08:49 Surgical - Exam Vital Signs Temp Pulse Resp BP Pulse Ox 97.9 F 77 18 133/78 97 04/29/22 08:51 04/29/22 08:51 04/29/22 08:51 04/29/22 08:51 04/29/22 08:51 - General well developed, well nourished, no distress - Eyes PERRL - ENT normal pinna - Neck no masses - Respiratory normal expansion - Cardiovascular Rhythm: regular - Abdomen Abdomen: soft, non tender Assessment and Plan Assessment: Right upper quadrant pain Chronic cholecystitis We'll perform laparoscopic cholecystectomy
[2022-04-29] MEDS ORDERED: ROCURONIUM 10 MG/ML (5 ML VIAL) IV ONE (09:20)
[2022-04-29] MEDS ORDERED: KETAMINE 10 MG/ML 20 ML VIAL ONE (09:20)
[2022-04-29] MEDS ORDERED: ALBUTEROL HFA INHALER INHALATION ONE (09:20)
[2022-04-29] MEDS ORDERED: GLYCOPYRROLATE 0.2 MG/ML 2 ML VIAL ONE (09:20)
[2022-04-29] MEDS ORDERED: SUCCINYLCHOLINE CHLORIDE 100 MG/5 ML SYR IV ONE (09:20)
[2022-04-29] MEDS ORDERED: MIDAZOLAM 2 MG/2 ML VIAL ONE (09:20)
[2022-04-29] MEDS ORDERED: LIDOCAINE 2% INJ 20 MG/ML (2 ML VIAL) ONE (09:20)
[2022-04-29] MEDS ORDERED: KETOROLAC 15 MG/ML 1 ML VIAL ONE (09:20)
[2022-04-29] MEDS ORDERED: HYDROmorphone (PF) 1 MG/ML ONE (09:20)
[2022-04-29] MEDS ORDERED: NEOSTIGMINE 1 MG/ML 10 ML VIAL ONE (09:20)
[2022-04-29] MEDS ORDERED: PROPOFOL 10 MG/ML 20 ML VIAL IV ONE (09:20)
[2022-04-29] MEDS ORDERED: fentaNYL (PF) 50 MCG/ML 2 ML AMP ONE (09:20)
[2022-04-29] MEDS ORDERED: BUPIVACAIN-EPI 0.25%-1:200,000 30 ML VIAL SQ ONE ×2 (09:24→09:44)
--- NOTE | 2022-04-29 10:11 | P.OP ---
Date of Procedure: 04/29/22 Preoperative Diagnosis: Cholecystitis Postoperative Diagnosis: Cholecystitis Procedure(s) Performed: Laparoscopic cholecystectomy Anesthesia: BENSON Surgeon: Francis Mariano Estimated Blood Loss (ml): 5 Pathology: other (Gallbladder) Condition: stable Disposition: PACU Description of Procedure: The patient was placed on the operating table. The patient received a general endotracheal tube anesthesia. The patients abdomen was prepped and draped in the usual sterile fashion. Through an infraumbilical stab incision, the fascia of the anterior abdominal wall was grasped with a pair of Kochers and then the Veress needle was placed in the peritoneal cavity. Position of the Veress needle was confirmed with positive drop test. The abdomen was then insufflated. After adequate insufflation, the 10 mm trocar was placed in the peritoneal cavity. Following this the laparoscope was placed in the peritoneal cavity. The patient was placed in the head-up, right side up position and then a 5 mm trocar was placed in the right lateral and right subcostal position under direct visualization. A 8 mm trocar was placed in the epigastric position. The gallbladder was grasped in the fundus and infundibulum. Traction on the gallbladder was placed in the lateral and the cephalad positions. The triangle of Calot was visualized.. The cystic duct was bluntly dissected until the union of the cystic duct and common bile duct was seen. A critical view of safety was achieved. The cystic duct was then divided and sealed with the Harmonic scissors. A PDS Endoloop was then placed throughout the cystic duct stump. The cystic artery divided and sealed with the Harmonic scissors. The gallbladder was then removed from the liver bed using Harmonic scissors. The gallbladder was then extracted through the epigastric port site. Operative field was checked for any bleeding spots and Harmonic scissors was used to coagulate the liver bed. The abdomen was irrigated. The trocars were removed. The skin was closed using interrupted 3-0 Vicryl suture. Dermabond dressing were applied. The patient tolerated the procedure well.
[2022-04-29 10:12] VITALS: TEMP 97.8
[2022-04-29 11:39] VITALS: BP 128/78; PULSE 77; RESP 18
== END 2022-04-29 11:55 | disposition home or self-care (01) ==
LOC: OR 08:15
PROVIDERS: ATTEND Surgery
DX: E78.5 Hyperlipidemia, unspecified (principal); K81.1 Chronic cholecystitis; M54.50 Low back pain, unspecified; F17.210 Nicotine dependence, cigarettes, uncomplicated; Z80.3 Family history of malignant neoplasm of breast; Z80.1 Family history of malignant neoplasm of trachea, bronchus and lung; Z79.899 Other long term (current) drug therapy; Z98.890 Other specified postprocedural states; Z88.5 Allergy status to narcotic agent; R56.9 Unspecified convulsions
CPT/HCPCS: 88304; 47562; J2250; J1100; J2710; J0690; J2405; J3010; J1170; J1885; J0330; J2704; J1644; J2001

== ENCOUNTER 2022-05-19 07:14 | Day surgery (SDC) | payer OTHER ==
[2022-05-15 12:31] VITALS: BMI 33.2
[~2022-05-19 07:14] MED LIST changes: +DEXAMETHASONE SOD PHOSPHATE 4 MG/ML 1 ML VIAL IV ONE; +HYDROmorphone 0.5 MG/0.5 ML SYRINGE IVP PRN; +LACTATED RINGERS 1,000 ML IV SCH; +LIDOCAINE 1% (10MG/ML) FOR IV START INTRADERMA PRN; +METOCLOPRAMIDE 5 MG/ML 2 ML VIAL IVP PRN; +ONDANSETRON 4 MG/2 ML VIAL IVP ONE
--- NOTE | 2022-05-19 09:18 | P.GSHP ---
History of Present Illness H&P Date: 05/19/22 Chief Complaint: Right inguinal hernia This a 41-year-old male who presents today for laparoscopic robotic-assisted repair of right inguinal hernia. Patient developed a right inguinal mass and pain. Past Medical History Past Medical History: No Reported History Additional Past Medical History / Comment(s): RT INGUINAL HERNIA History of Any Multi-Drug Resistant Organisms: None Reported Past Surgical History: Cholecystectomy, Hernia Repair, Orthopedic Surgery Additional Past Surgical History / Comment(s): Septoplasty, R knee surgery. COLONOSCOPY-03/30/22. LAP RIAN-04/29/22 Past Anesthesia/Blood Transfusion Reactions: No Reported Reaction Smoking Status: Current every day smoker - Past Family History Mother Family Medical History: Cancer Additional Family Medical History / Comment(s): Breast Father Family Medical History: Cancer Additional Family Medical History / Comment(s): lung cancer Medications and Allergies Home Medications Medication Instructions Recorded Confirmed Type Multivitamins, Thera [Multivitamin 1 tab PO DAILY 03/30/22 05/19/22 History (formulary)] Acetaminophen Tab [Tylenol] 650 mg PO Q6H #30 tab 04/29/22 05/19/22 Rx Ibuprofen [Motrin] 600 mg PO Q6HR PRN #40 tab 04/29/22 05/19/22 Rx Allergies Allergy/AdvReac Type Severity Reaction Status Date / Time tramadol Allergy Swelling Verified 05/19/22 08:06 codeine AdvReac Swelling Verified 05/19/22 08:06 Surgical - Exam Vital Signs Temp Pulse Resp BP Pulse Ox 96.9 F L 76 18 136/91 96 05/19/22 08:15 05/19/22 08:15 05/19/22 08:15 05/19/22 08:15 05/19/22 08:15 - General well developed, well nourished, no distress - Eyes PERRL - ENT normal pinna - Neck no masses - Respiratory normal expansion - Cardiovascular Rhythm: regular - Abdomen Abdomen: soft, non tender Hernia: inguinal (Right inguinal) Assessment and Plan Assessment: Reading hernia. We'll perform laparoscopic robotic-assisted repair.
[2022-05-19] MEDS ORDERED: BUPIVACAIN-EPI 0.25%-1:200,000 30 ML VIAL SQ ONE ×3 (09:41→10:30)
[2022-05-19] MEDS ORDERED: SUCCINYLCHOLINE CHLORIDE 100 MG/5 ML SYR IV ONE (09:54)
[2022-05-19] MEDS ORDERED: LIDOCAINE 2% INJ 20 MG/ML (2 ML VIAL) ONE (09:54)
[2022-05-19] MEDS ORDERED: PROPOFOL 10 MG/ML 20 ML VIAL IV ONE (09:54)
[2022-05-19] MEDS ORDERED: HYDROmorphone (PF) 1 MG/ML ONE (09:54)
[2022-05-19] MEDS ORDERED: fentaNYL (PF) 50 MCG/ML 2 ML AMP ONE (09:54)
[2022-05-19] MEDS ORDERED: KETAMINE 10 MG/ML 20 ML VIAL ONE (09:54)
[2022-05-19] MEDS ORDERED: MIDAZOLAM 2 MG/2 ML VIAL ONE (09:54)
[2022-05-19] MEDS ORDERED: KETOROLAC 15 MG/ML 1 ML VIAL ONE (09:54)
--- NOTE | 2022-05-19 10:44 | P.OP ---
Date of Procedure: 05/19/22 Preoperative Diagnosis: Recurrent right inguinal hernia Postoperative Diagnosis: Recurrent right inguinal hernia Procedure(s) Performed: Open repair of recurrent right inguinal hernia Anesthesia: BENSON Surgeon: Francis Mariano Estimated Blood Loss (ml): 5 Pathology: none sent Condition: stable Disposition: PACU Description of Procedure: DESCRIPTION OF PROCEDURE: The patient was placed in the supine position after receiving adequate anesthesia. Patients groin was prepped and draped in the usual sterile fashion. A standard hernia incision was made and the subcutaneous tissues were divided with electrocautery. The fascia of the external oblique was exposed. A ernst the fascia was made with #15 blade. The fascia was then opened with pair of Metzenbaum scissors. A Weitlaner retractor was placed in the wound and the cord structures were grasped and dissected free from the inguinal canal. A rubber Romana drain was placed around the cord structures. The hernial sac was seen on the anterior-medial portion of the cord and this was dissected free from the cord. The hernia sac was then invaginated to the peritoneal cavity. Using blunt finger dissection, the preperitoneal space was dissected and then the Prolene hernial mesh plug was placed into the prepared space. The inferior leaf was expanded. The superior leaf was secured to the pubic tubercle using 2-0 Prolene suture. The lateral portion of the superior leaf was incised and cords tied and secured to the transversalis fascia using 2-0 Prolene suture. Fascia of the external oblique was then closed using #0 Vicryl suture. The Romana drain was removed. The Scarpas fascia was then closed with 3-0 Vicryl suture and skin was closed with elgin. The patient tolerated the procedure well.
[2022-05-19 10:58] VITALS: RESP 16; TEMP 97
[2022-05-19 12:36] VITALS: BP 136/73; PULSE 80
== END 2022-05-19 13:06 | disposition home or self-care (01) ==
LOC: OR 07:14
PROVIDERS: ATTEND Surgery
DX: K40.91 Unilateral inguinal hernia, without obstruction or gangrene, recurrent (principal); F17.200 Nicotine dependence, unspecified, uncomplicated; Z90.49 Acquired absence of other specified parts of digestive tract; Z98.890 Other specified postprocedural states; Z88.5 Allergy status to narcotic agent; Z80.1 Family history of malignant neoplasm of trachea, bronchus and lung
CPT/HCPCS: 49520; C1781; J2250; J1100; J0690; J2405; J3010; J1170 ×2; J1885; J0330; J2704; J1644; J2001

== ENCOUNTER → 2023-05-07 | Outpatient (CLI) | payer OTHER ==
[2023-05-07 17:14] LABS: Appearance,Urine Clear (Clear); Bilirubin,Urine Negative (Negative); Blood,Urine Negative (Negative); Color,Urine Yellow; Glucose,Urine (UA) Negative (Negative); Ketones,Urine Negative (Negative); Leukocyte Esterase,Urine Negative (Negative); Mucus,Urine Rare /hpf; Nitrite,Urine Negative (Negative); PH, Urine 6.5 (5.0-8.0); Protein,Urine 1+ (Negative); RBC,Urine 2 /hpf (0-5); Specific Gravity,Urine 1.026 (1.001-1.035); WBC,Urine <1 /hpf (0-5)
[2023-05-08 02:29] LABS: Basophils # (A) 0.12 X 10*3/uL (0.00-0.10); Basophils % (A) 1.2 %; Eosinophils # (A) 0.48 X 10*3/uL (0.04-0.35); Eosinophils % (A) 4.8 %; HCT 45.1 % (39.6-50.0); HGB 15.1 d/dL (12.0-15.0); Lymphocytes % (A) 40.2 %; MCH 32.6 pg (27.0-32.0); MCHC 33.5 d/dL (32.0-37.0); MCV 97.4 FL (80.0-97.0); Mean Platelet Volume 12.8 FL (9.5-12.2); Monocytes # (A) 0.49 X 10*3/uL (0.20-1.00); Monocytes % (A) 4.9 %; NRBC Per 100 WBC 0 X 10*3/uL (0.00-0.01); Neutrophils # (A) 4.81 X 10*3/uL (1.80-7.70); Neutrophils % (A) 48.5 %; Platelet Count 222 X 10*3/uL (140-440); RBC 4.63 X 10*6/uL (4.40-5.60); RDW 12.9 % (11.5-14.5); WBC 9.94 X 10*3/uL (4.50-10.00)
[2023-05-08 02:55] LABS: ALT 58 U/L (10-49); AST 48 U/L (14-35); Albumin 4.7 d/dL (3.8-4.9); Albumin/Globulin Ratio 1.88 Ratio (1.60-3.17); Alkaline Phosphatase 71 U/L (41-126); Blood Urea Nitrogen 10.2 mg/dL (9.0-27.0); Calcium 9.7 mg/dL (8.7-10.3); Carbon Dioxide 26.6 mmol/L (21.6-31.8); Chloride 106 mmol/L (96-109); Chol/HDL Ratio 9.64 Ratio; Globulin 2.5 d/dL (1.6-3.3); Glucose 110 mg/dL (70-110); LDL Cholesterol,Calculated 212.7 mg/dL (0.0-131.0); Potassium 4.9 mmol/L (3.5-5.5); Sodium 143 mmol/L (135-145); T4, Free (Free Thyroxine) 1.24 ng/dL (0.80-1.80); Total Bilirubin 0.4 mg/dL (0.3-1.2); Total Protein 7.2 d/dL (6.2-8.2)
--- NOTE | 2023-05-09 19:48 | XR ---
EXAMINATION TYPE: XR lumbar spine 2 or 3V DATE OF EXAM: 05/07/2023 Comparison: 02/25/2015 Clinical History: 42-year-old male M54.50 LOW BACK PAIN Findings: Mild multilevel endplate spondylosis. Mild facet arthropathy lower lumbar spine. Vertebral body heigh ts are preserved and alignment is maintained. 5 lumbar type vertebral bodies. Impression: Mild multilevel endplate spondylosis. Mild facet arthropathy lower lumbar spine. No vertebral maren iftikhar collapse or malalignment.
--- NOTE | 2023-05-09 19:50 | XR ---
EXAMINATION TYPE: XR knee complete bilateral DATE OF EXAM: 05/07/2023 COMPARISON: Right knee 01/19/2016 HISTORY: 42-year-old male M1 7.9, osteoarthritis of the knee. Right ACL repair 7 years ago. TECHNIQUE: 3 views each side FINDINGS: Right: Postsurgical change of prior ACL graft reconstruction. There is a small knee joint effusion. Degenera tive spurring in the medial and patellofemoral compartments. Mild joint space narrowing in the medial compartment. Left: Extensor mechanism is intact. Minimal early degenerative spurring of the patellofemoral compartment. No acute fracture, subluxation, or dislocation. IMPRESSION: 1. Right: Prior ACL graft reconstruction repair. There is a small knee joint effusion. Intl-un-uwignp te medial and patellofemoral compartmental OA. 2. Left: Minimal early degenerative spurring in the patellofemoral compartment. No acute osseous abno rmality seen.
== END | disposition home or self-care (01) ==
LOC: LABWHC1 16:31
PROVIDERS: ATTEND Family Medicine
DX: M54.50 Low back pain, unspecified (principal); E78.5 Hyperlipidemia, unspecified; E55.9 Vitamin D deficiency, unspecified; M17.9 Osteoarthritis of knee, unspecified
CPT/HCPCS: 36415; 72100; 80053; 80061; 81001; 82306; 83036; 84439; 84443; 85025

== ENCOUNTER → 2024-03-20 | Outpatient (CLI) | payer OTHER ==
[2024-03-20 11:20] LABS: Basophils # (A) 0.14 X 10*3/uL (0.00-0.10); Basophils % (A) 1.4 %; Eosinophils # (A) 0.51 X 10*3/uL (0.04-0.35); Eosinophils % (A) 5.1 %; HCT 49.1 % (39.6-50.0); HGB 15.9 g/dL (13.0-17.0); Lymphocytes # (A) 3.63 X 10*3/uL (0.90-5.00); Lymphocytes % (A) 36.3 %; MCH 31.4 pg (27.0-32.0); MCHC 32.4 g/dL (32.0-37.0); Mean Platelet Volume 11.9 FL (9.5-12.2); Monocytes # (A) 0.63 X 10*3/uL (0.20-1.00); Monocytes % (A) 6.3 %; NRBC Per 100 WBC 0 X 10*3/uL (0.00-0.01); Neutrophils # (A) 5.03 X 10*3/uL (1.80-7.70); Neutrophils % (A) 50.4 %; Platelet Count 230 X 10*3/uL (140-440); RBC 5.06 X 10*6/uL (4.40-5.60); RDW 13.2 % (11.5-14.5); WBC 9.99 X 10*3/uL (4.50-10.00)
[2024-03-20 11:49] LABS: ALT 64 U/L (10-49); AST 44 U/L (14-35); Albumin 4.6 g/dL (3.8-4.9); Albumin/Globulin Ratio 1.92 Ratio (1.60-3.17); Alkaline Phosphatase 73 U/L (41-126); BUN/Creat Ratio 11.89 Ratio (12.00-20.00); Blood Urea Nitrogen 10.7 mg/dL (9.0-27.0); Calcium 9.7 mg/dL (8.7-10.3); Carbon Dioxide 24.2 mmol/L (21.6-31.8); Chloride 104 mmol/L (96-109); Globulin 2.4 g/dL (1.6-3.3); Glucose 117 mg/dL (70-110); LDL Cholesterol,Calculated 194.4 mg/dL (0.0-131.0); Potassium 4.1 mmol/L (3.5-5.5); Sodium 139 mmol/L (135-145); Total Bilirubin 0.4 mg/dL (0.3-1.2)
== END | disposition home or self-care (01) ==
LOC: LABWHC1 07:33
PROVIDERS: ATTEND Family Medicine
DX: E55.9 Vitamin D deficiency, unspecified (principal); E78.5 Hyperlipidemia, unspecified; R73.03 Prediabetes
CPT/HCPCS: 36415; 80053; 80061; 82306; 83036; 84443; 85025

== ENCOUNTER → 2024-04-10 | Outpatient (CLI) | payer OTHER | END | disposition home or self-care (01) | LOC: RADUSWWP 15:53 | PROVIDERS: ATTEND Surgery | DX: Z53.9 Procedure and treatment not carried out, unspecified reason (principal) ==

== ENCOUNTER → 2025-02-05 | Outpatient (CLI) | payer OTHER ==
[2025-02-05 11:48] LABS: Creatinine 24 Hour,Urine 1180.8 mg/24hr (1000.0-2000.0); Total Volume 24 Hour,Urine 1200 mls (800-1800)
[2025-02-05 13:20] LABS: Creatinine Clearance Urine 95 ml/min (70-135)
[2025-02-05 23:25] LABS: Total Protein 24 Hour,Urine 368.4 mg/24Hr (0.0-165.0); Total Volume 24 Hour,Urine 1200 mL
== END | disposition home or self-care (01) ==
LOC: LABWHC1 08:20
PROVIDERS: ATTEND Family Medicine
DX: R80.9 Proteinuria, unspecified (principal)
CPT/HCPCS: 36415; 81050; 82043; 82570; 82575; 84156